=== PATIENT | female | born 1940 | race Caucasian/White ===

== ENCOUNTER 2022-11-29 18:57 | Emergency (ER) | payer MEDICARE ==
[2022-11-29] MEDS: LOPERAMIDE 2 MG CAPSULE PO STA (19:36)
--- NOTE | 2022-11-29 19:37 | ED Physician Documentation ---
PD HPI HEADACHE - Stated complaint Stated Complaint: SILVER/NAUSEA/DIARRHEA - Chief complaint Chief Complaint: Neuro - History obtained from History obtained from: Patient - Additional information Additional information: This is an 82-year-old woman with history of atrial fibrillation (she actually was not aware of the term per se but says she has an irregular heartbeat and is taking Pradaxa on the advice of her comber operator). She also has a history of frequent migraines. She was in her usual state of health today, had gone out to lunch for [place] food with family then was sitting in the car. She developed sudden binocular blindness which she describes as an incomplete blindness where she could only see dark shadows, it waxed and waned for about 10 minutes. Then she developed headache consistent with her migraines, and took Imitrex for this. Subsequently she vomited which is atypical for her migraines and developed diarrhea which has been persistent since. She denies fevers. Headache is mild at this juncture. Her vision is back to normal completely. PD PAST MEDICAL HISTORY - Allergies Allergies/Adverse Reactions: Allergies Allergy/AdvReac Type Severity Reaction Status Date / Time No Known Drug Allergies Allergy Verified 11/29/22 19:06 PD ED PE NORMAL - Vitals Vital signs reviewed: Yes - General General: Alert and oriented X 3, No acute distress - HEENT HEENT: PERRL, EOMI - Neck Neck: Supple, no meningeal sign, No bony TTP - Cardiac Cardiac: Other (Irregularly irregular without murmur) - Respiratory Respiratory: No respiratory distress, Clear bilaterally - Abdomen Abdomen: Non tender - Neuro Neuro: Alert and oriented X 3, instructor programmable controllers 2-12 intact, No motor deficit, No sensory deficit, Other (NIH stroke scale is 0 measured at 7:30 PM on initial exam.) Eye Opening: Spontaneous Motor: Obeys Commands Verbal: Oriented GCS Score: 15 Results - Vitals Vitals: Vital Signs - 24 hr 11/29/22 11/29/22 19:07 20:11 Temperature 36.1 C L Heart Rate 88 77 Respiratory 18 19 Rate Blood Pressure 102/54 L 115/68 O2 Saturation 96 95 Oxygen O2 Source Room air - EKG (time done) 1953 EKG releavant findings:: EKG personally interpreted by author of this note. Relevant findings are: Rate: Rate (enter#) (70) Rhythm: Atrial fibrillation [place]: Normal QRS: Low voltage Ischemia: Normal ST segments - Labs Labs: Laboratory Tests 11/29/22 11/29/22 19:51 19:51 WBC 26.7 H RBC 4.70 Hgb 14.1 Hct 44.6 MCV 94.9 MCH 30.0 MCHC 31.6 L RDW 14.2 Plt Count 199 MPV 9.6 Neut # (Auto) Not Reportable Lymph # (Auto) Not Reportable [place] # (Auto) Not Reportable Eos # (Auto) Not Reportable Baso # (Auto) Not Reportable Absolute Nucleated RBC Not Reportable Total Counted 100 Band Neuts % (Manual) 7 Reactive Lymphs % (Man) 1 Abnorm Lymph % (Manual) 0 Nucleated RBC % Not Reportable Neutrophils # (Manual) 17.6 H Lymphocytes # (Manual) 6.7 H Monocytes # (Manual) 2.4 H Eosinophils # (Manual) 0.0 Basophils # (Manual) 0.0 Differential Comment MANUAL DIFFERENTIAL Platelet Estimate NORMAL (130-450,000) Platelet Morphology NORMAL APPEARANCE RBC Morph Micro Appear NORMAL APPEARANCE Sodium 137 Potassium 3.9 Chloride 100 L Carbon Dioxide 26 Anion Gap 11.0 BUN 39 H Creatinine 1.9 H Estimated GFR (MDRD) 25 L Glucose 122 H Calcium 10.3 Magnesium 2.0 Total Bilirubin 0.8 AST 27 ALT 19 Alkaline Phosphatase 66 Total Protein 7.8 Albumin 4.5 Globulin 3.3 Albumin/Globulin Ratio 1.4 - Rads (name of study) Head ct Relevant Findings:: Final report received, EMP independent interpretation of test PD Medical Decision Making - ED course ED course: 82-year-old woman presents with headache and transient bilateral binocular blindness, vomiting, and diarrhea. The blindness has resolved. Her headache is persistent but mild at this point. After the administration of IV Reglan, fluids, and oral Imodium she feels back to normal. Work-up in the emergency department consisted of a head CT which was unremarkable. And lab work which showed a CBC with significant leukocytosis and decreased renal function on CMP. These were discussed with the patient. She states that she has a chronically high white count but does not know what her baseline is. There are really no signs of active infection and given her resolved symptoms this is probably a more chronic phenomenon plus or minus some demargination from the stress of what happened today. She also mentioned that her kidney function is being followed so presume she has some level of chronic kidney disease, again I do not have old numbers, but she was given a copy of all of her labs to follow-up with her physician with. Departure - Departure Disposition: 01 Home, Self Care Clinical Impression: Kidney disease, Headache, Diarrhea, Adequate anticoagulation on anticoagulant therapy Leukocytosis Qualifiers: Leukocytosis type: leukemoid reaction Qualified Code(s): D72.823 - Leukemoid reaction Vomiting Qualifiers: Vomiting type: unspecified Nausea presence: with nausea Qualified Code(s): R11.2 - Nausea with vomiting, unspecified Condition: Good Record reviewed to determine appropriate education?: Yes Instructions: ED Nausea Vomiting Comments: You were seen today for headache in the setting of being anticoagulated. You are in A-fib and we did a CAT scan of your head that was normal. We did note some lab abnormalities which you suggest to me may be chronic or at least partially chronic. These include an elevated white blood cell count and decreased renal function. Please be sure to take the results that I gave you printed out and discussed them with your physician. Thankfully after treatment of your headache and some hydration you are feeling back to normal. Return if worse.
[2022-11-29] MEDS: SODIUM CHLORIDE 0.9% 1,000 ML IV STA (20:03)
[2022-11-29] MEDS: METOCLOPRAMIDE 10 MG/2 ML VIAL IVP STA (20:09)
[2022-11-29 20:10] LABS: BASOPHILS % (AUTO) 0.3 %; EOSINOPHILS % (AUTO) 0.2 %; HCT - HEMATOCRIT 44.6 % (37.0-47.0); HGB - HEMOGLOBIN 14.1 g/dL (12.0-16.0); LYMPHOCYTES % (AUTO) 27.9 %; MEAN CORPUSCULAR HGB CONC 31.6 g/dL (32.0-36.0); MEAN CORPUSCULAR VOLUME 94.9 fL (81.0-99.0); MEAN PLATELET VOLUME 9.6 fL (7.9-10.8); MONOCYTES % (AUTO) 7.6 %; NEUTROPHILS % (AUTO) 63.4 %; PLT - PLATELET COUNT 199 10^3/uL (130-450); RED CELL DISTRIBUTION WIDTH 14.2 % (12.0-15.0); WHITE BLOOD COUNT 26.7 x10^3/uL (4.8-10.8)
[2022-11-29 20:14] LABS: ABNORMAL LYMPHS % (MANUAL) 0 %
[2022-11-29 20:22] LABS: ALBUMIN 4.5 g/dL (3.2-5.5); ALBUMIN/GLOBULIN RATIO 1.4 (1.0-2.2); BILIRUBIN,TOTAL 0.8 mg/dL (0.2-1.0); CALCIUM 10.3 mg/dL (8.5-10.3); CREATININE 1.9 mg/dL (0.4-1.0); POTASSIUM 3.9 mmol/L (3.5-5.0); TOTAL PROTEIN 7.8 g/dL (6.7-8.2)
--- NOTE | 2022-11-29 20:48 | CT Report ---
PROCEDURE: HEAD WO INDICATIONS: headache TECHNIQUE: Noncontrast 4.5 mm thick angled axial sections acquired from the foramen magnum to the vertex. For r adiation dose reduction, the following was used: automated exposure control, adjustment of mA and/or kV according to patient size. COMPARISON: None. FINDINGS: Image quality: Good CSF spaces: Basal cisterns are patent. Lateral ventricles are symmetric. Volume: Vascular calcifications. Periventricular white matter disease is commonly seen with chronic m icroangiopathy. Volume loss is present. These findings are mild. Brain: No intracranial hemorrhage. Osorio-white differentiation is grossly maintained. Craniofacial structures: No displaced fracture. Sinuses are clear. Orbits are intact. IMPRESSION: No acute intracranial abnormality. If there is high concern for parenchymal pathology, consider furth er evaluation with MRI. Reviewed by: Adolfo Jimenez MD on 11/29/2022 8:47 PM PDT Approved by: Adolfo Jimenez MD on 11/29/2022 8:47 PM PDT Station ID: [id number]
[2022-11-29 20:59] LABS: BAND NEUTROPHILS % (MANUAL) 7 %; DIFFERENTIAL COMMENT MANUAL DIFFERENTIAL; LYMPHOCYTES # (MANUAL) 6.7 10^3/uL (1.5-3.5); LYMPHOCYTES % (MANUAL) 24 %; MONOCYTES # (MANUAL) 2.4 10^3/uL (0.0-1.0); NEUTROPHILS # (MANUAL) 17.6 10^3/uL (1.5-6.6); PLATELET ESTIMATE, MANUAL NORMAL (130-450,000) (NORMAL); PLATELET MORPHOLOGY NORMAL APPEARANCE (NORMAL); RBC MORPHOLOGY (MULTIPLE) NORMAL APPEARANCE (NORMAL); REACTIVE LYMPHS % (MANUAL) 1 %
[2022-11-29 21:38] VITALS: BP 122/71
== END 2022-11-29 21:33 | disposition home or self-care (01) ==
LOC: ED 18:57
DX: D72.823 Leukemoid reaction (principal); N28.9 Disorder of kidney and ureter, unspecified; R11.2 Nausea with vomiting, unspecified; R19.7 Diarrhea, unspecified; I48.91 Unspecified atrial fibrillation; Z79.01 Long term (current) use of anticoagulants
CPT/HCPCS: 36415; 70450; 80053; 83735; 85025; 93005; 96374; 99284; A9270; J2765